=== PATIENT | female | born 1965 | race Caucasian/White ===

== ENCOUNTER → 2017-02-14 | Outpatient (REF) | payer OTHER | LOC: M SFHCLERA 15:46 | PROVIDERS: ATTEND Nurse Practitioner Family | DX: R30.0 Dysuria (principal) ==

== ENCOUNTER → 2022-12-02 | Outpatient (CLI) | payer OTHER | LOC: M WHC 11:11 | PROVIDERS: ATTEND Family Medicine | DX: Z12.31 Encounter for screening mammogram for malignant neoplasm of breast (principal) ==

== ENCOUNTER 2023-02-22 07:53 | Emergency (ER) | payer OTHER ==
[~2023-02-22] VITALS: Ht 154.9 cm; Wt 78.5 kg
[2023-02-22] MEDS ORDERED: OMEP40CA5 (08:24)
[2023-02-22] MEDS ORDERED: SYNT75TA (08:24)
[2023-02-22] MEDS ORDERED: PRED20TA (08:24)
[2023-02-22] MEDS ORDERED: IBUP80TA PO (11:25)
[2023-02-22] MEDS ORDERED: NEUR300C PO (11:25)
[2023-02-22] MEDS ORDERED: ACET-897 PO (11:25)
[2023-02-22 11:44] VITALS: BP 170/90
== END 2023-02-22 11:47 | disposition home or self-care (01) ==
LOC: M ED 11:33
DX: R20.2 Paresthesia of skin (principal); K21.9 Gastro-esophageal reflux disease without esophagitis; E03.9 Hypothyroidism, unspecified

== ENCOUNTER 2023-07-24 09:52 | Day surgery (SDC) | payer OTHER ==
[~2023-07-24] VITALS: Ht 154.9 cm; Wt 76.0 kg
[~2023-07-24 09:52] MED LIST: ACET-897 PO; BSS IRRIG/VANCO(10MG)/TOBRA(5MG)/EPINEPH(1:1000-0.5CC)500ML BAG-ORONLY IR ONE; CEFUROXIME 1MG/0.1ML INTRACAMERAL INJ As Ordered ONE; CYCLOPENTOLATE 1% OPHTH SOLN 2ML BTL OD SCH; IBUP80TA PO; LIDOCAINE 1% SDV 5ML VIAL As Ordered ONE; LIDOCAINE 3.5 % 1ML OPHTH TOPICAL GEL OU ONE; MIDAZOLAM INJ 2MG/2ML VIAL As Ordered ONE; NEUR300C PO; OFLOXACIN 0.3 % (OCUFLOX) OPTH SOL 5ML OD ONE; OMEP40CA5; PHENYLEPHRINE 10% OPHTH SOL 5ML OD PRN; PHENYLEPHRINE 2.5% OPHTH SOL 2ML OD SCH; PRED20TA; SYNT75TA; TELM1TAB33 PO; TROPICAMIDE 1% OPHTH SOLN 15ML OD SCH; fentaNYL 100 MCG/2 ML INJECTION As Ordered ONE
[2023-07-24 11:23] VITALS: BP 132/62; TEMP 96.5; O2SAT 95
[2023-07-24] MEDS ORDERED: ONDANSETRON 4MG TAB PO ONE (11:55)
== END 2023-07-24 12:10 | disposition home or self-care (01) ==
LOC: M SDC 09:52
PROVIDERS: ATTEND Ophthalmology
DX: H26.9 Unspecified cataract (principal); I10 Essential (primary) hypertension; E03.9 Hypothyroidism, unspecified; Z79.899 Other long term (current) drug therapy; Z79.890 Hormone replacement therapy
CPT/HCPCS: 66984; 92015; J0697; J2250; J3010; V2788